=== PATIENT | male | born 1985 | race Caucasian/White ===

== ENCOUNTER 2023-10-07 21:26 | Emergency (ER) | payer MEDICARE, MEDICAID ==
[~2023-10-07] VITALS: Ht 188 cm; Wt 130.0 kg
[2023-10-07 22:00] VITALS: PULSE 82; RESP 16; O2SAT 97
[2023-10-07 22:11] LABS: Basophils # (auto) 0.1 10 ^3/uL (0-0.2); Basophils % (auto) 0.9 % (0.0-2.0); Eosinophils # (auto) 0.1 10 ^3/uL (0-0.8); Eosinophils % (auto) 1.7 % (0.0-7.0); Hematocrit 45.3 % (41.0-53.0); Hemoglobin 15.4 g/dL (13.5-17.5); Lymphocytes # (auto) 2.6 10 ^3/uL (0.4-5.4); Lymphocytes % (auto) 33.7 % (10.0-50.0); Mean Corpuscular Hgb Conc. 33.9 g/dL (32.0-36.0); Monocytes # (auto) 0.4 10 ^3/uL (0-1.3); Neutrophils # (auto) 4.6 10 ^3/uL (1.6-8.6); Neutrophils % (auto) 58.7 % (37.0-80.0); Nucleated Red Blood Cells % 0.1 %; Red Blood Cells 4.52 10^6/uL (4.5-5.90); Red Cell Distribution Width 13.8 % (11.8-14.3); White Blood Cell 7.8 10^3/uL (4.4-10.8)
[2023-10-07 22:17] LABS: Alanine Aminotransferase 27 U/L (7-40); Albumin 4.3 g/dL (3.2-4.8); Alkaline Phosphatase 40 U/L (46-116); Anion Gap 9 (5-15); Aspartate Aminotransferase 31 U/L (13-40); Bilirubin, Total 0.3 mg/dL (0.2-1.0); Calcium 8.7 mg/dL (8.7-10.4); Carbon Dioxide 24 mmol/L (20-30); Chloride 104 mmol/L (98-107); Glucose 129 mg/dL (74-106); Potassium 3.9 mmol/L (3.5-5.1); Sodium 137 mmol/L (136-145)
[2023-10-07 22:18] LABS: Total Protein 6.6 g/dL (5.7-8.2)
[2023-10-07 22:19] LABS: BUN/Creatinine Ratio 6.3 (10.0-20.0); Blood Urea Nitrogen < 5 mg/dL (9-23)
[2023-10-08 00:32] LABS: Urine Epithelial Cast None Seen /hpf (<5)
[2023-10-08 00:49] LABS: Urine Bacteria NONE SEEN /hpf (None Seen); Urine Blood Negative /uL (Negative); Urine Clarity Clear (Clear); Urine Color Straw (Yellow); Urine Protein, UAD Negative (Negative); Urine Specific Gravity 1.008 (1.001-1.035); Urine Urobilinogen Normal (Negative); Urine WBC <1 /hpf (0 - 3); Urine pH 6.5 (5.0-8.0)
[2023-10-08] MEDS: levETIRAcetam 500 MG TAB PO ONE (01:57)
[2023-10-08 04:00] VITALS: BP 125/71; PULSE 81; RESP 20; O2SAT 96
== END 2023-10-08 04:21 | disposition home or self-care (01) ==
LOC: EDBD 21:26 → ER 21:26
DX: R56.9 Unspecified convulsions (principal); F17.210 Nicotine dependence, cigarettes, uncomplicated; F12.10 Cannabis abuse, uncomplicated; Z59.00 Homelessness unspecified
CPT/HCPCS: 36415; 70450; 80053; 80164; 81001; 82542; 85025

== ENCOUNTER 2025-01-02 01:38 | Emergency (ER) | payer MEDICARE, MEDICAID ==
[~2025-01-02] VITALS: Ht 188 cm; Wt 128.5 kg
[2025-01-02 02:04] VITALS: BP 147/114; PULSE 71; RESP 16; TEMP 97.4; O2SAT 94
--- NOTE | 2025-01-02 02:45 | ED.PDOC ---
Musculoskeletal HPI Comments 39-YEAR-OLD MALE PRESENTS TO ER WITH COMPLAINTS OF RIGHT 5TH TOE PAIN X3 HOURS. PATIENT REPORTS THAT HE STARTED EXPERIENCING 5/10 PAIN WITH ASSOCIATED SWELLING/BRUISING TO RIGHT 5TH TOE 3 HOURS PRIOR TO ARRIVAL TO ER S/P ACCIDENTALLY HITTING A FOLDING TABLE WITH HIS RIGHT 5TH TOE WHILE WALKING BAREFOOT. DENIES USE OF MEDICATIONS FOR CURRENT SYMPTOMS. PATIENT PRESENTS TO ER AMBULATORY ON ARRIVAL, WITH STEADY GAIT, IN NO DISTRESS. DENIES NUMBNE SS/TINGLING, FURTHER SKIN CHANGES OR ANY FURTHER SYMPTOMS/COMPLAINTS Chief Complaint: Lower Extremity Time Seen by MD: 01:55 Primary Care Provider: DR VELAZQUEZ Reviewed Notes: Nurses Notes, Medications, Allergies Allergies: Coded Allergies: NO KNOWN ALLERGIES (Unverified , 04/06/15) Information Source: Patient Mode of Arrival: Ambulatory Past Medical History PAST MEDICAL HISTORY: Seizures Surgical History: Denies all surgeries Family History Family History: Unknown Social History Smoker: Cigarettes, Less Than 1 Pack/Day Alcohol: Occasionally Drugs: Marijuana Lives In: Homeless Constitutional: denies: chills, diaphoresis, fatigue, fever, malaise, sweats, weakness, others EENTM: denies: blurred vision, double vision, ear bleeding, ear discharge, ear drainage, ear pain, ear ringing, eye pain, eye redness, hearing loss, mouth pain, mouth swelling, nasal discharge, nose bleeding, nose congestion, nose pain, photophobia, tearing, throat pain, throat swelling, voice changes, others Respiratory: denies: cough, hemoptysis, orthopnea, SOB at rest, shortness of breath, SOB with excertion, stridor, wheezing, others Cardiovascular: denies: chest pain, dizzy spells, diaphoresis, Dyspnea on exertion, edema, irregular heart beat, left arm pain, lightheadedness, palpitations, PND, syncope, others Gastrointestinal: denies: abdomen distended, abdominal pain, blood streaked bowels, constipated, diarrhea, dysphagia, difficulty swallowing, hematemesis, melena, nausea, poor appetite, poor fluid intake, rectal bleeding, rectal pain, vomiting, others Genitourinary: denies: burning, dysuria, flank pain, frequency, hematuria, incontinence, penile discharge, penile sore, pain, testicle pain, testicle swelling, urgency, others Neurological: denies: dizziness, fainting, headache, left sided numbness, left sided weakness, numbness, paresthesia, pre-existing deficit, right sided numbness, right sided weakness, seizure, speech problems, tingling, tremors, weakness, others Musculoskeletal: reports: others ( STATED IN HPI) Integumetry: reports: others ( STATED IN HPI) Allergic/Immunocompromised: denies: Difficulty Healing, Frequent Infections, Hives, Itching, others Hematologic/Lymphatic: denies: anemia, blood clots, easy bleeding, easy bruising, swollen glands, others Endocrine: denies: excessive hunger, excessive sweating, excessive thirst, excessive urination, flushing, intolerance to cold, intolerance to heat, unexplained weight gain, unexplained weight loss, others Psychiatric: denies: anxiety, bipolar disorder, depression, hopeless, panic disorder, schizophrenia, sleepless, suicidal, others Physical Exam General Appearance: No Apparent Distress, Obese HEENT: PERRL/EOMI Neck: Full Range of Motion, Non-Tender, Normal Respiratory: Chest Non-Tender, Lungs Clear, No Accessory Muscle Use, No Respiratory Distress, Normal Breath Sounds Cardiovascular: No Murmur, No Gallop, Regular Rate/Rhythm Breast Exam: Deferred Gastrointestinal: NOT DONE Genitalia: Deferred Pelvic: Deferred Rectal: Deferred Extremities: Normal capillary refill, Normal range of motion Musculoskeletal : Extremity Location: Little Toe (TTP/MILD SWELLING/ECCHYMOSIS NOTED TO RIGHT 5TH TOE. NO NAILBED INJURY/DEFORMITY/FURTHER SKIN CHANGES NOTED. PULSES INTACT. STEADY GAIT APPRECIATED) Neurologic: Alert, No Motor Deficits, Normal Affect, Normal Mood, No Sensory Deficits Cerebellar Function: Normal Reflexes: Normal Skin: Dry, Warm Peripheral Pulses: 2+ dorsalis pedis (R), 2+ dorsalis pedis (L) Lymphatic: No Adenopathy Was a procedure done? Was a procedure done?: No Sedation Sedation?: No Differential Diagnosis EXT Differential Diagnosis: Fracture, Dislocation, Neurovascular injury X-Ray, Labs, Meds, VS Vital Signs Date Time Temp Pulse Resp B/P (MAP) Pulse Ox O2 Delivery O2 Flow Rate FiO2 01/02/25 02:04 97.4 71 16 147/114 (125) 94 97.4 01/02/25 02:04 71 16 94 Room Air 01/02/25 01:52 97.4 71 71 147/114 (125) 94 PATIENT: DIOGENES CABRALESCT: [id number]: [id number] : 1985 LOC: ER ROOM / BED: / AGE / SEX: 39 / M ADM STATUS: REG ER SERVICE 3 ORDERING PHYSICIAN: ALLAN EATON PROCEDURE(s): [id number] - R 5TH TOE XRAY REASON: right 5th toe pain ORDER NUMBER(s): [id number], ACCESSION NUMBER(s): [id number] XY R 5TH TOE XRAY, 01/02/2025. INDICATION: right 5th toe pain TECHNICAL DATA: Frontal view of the right foot and lateral and oblique views of the 5th toe were obtained. COMPARISON: None FINDINGS: No fracture is identified. Joint spaces are maintained. Alignment is anatomic. Soft tissues are within normal limits. IMPRESSION: 1. Unremarkable radiograph. No acute fracture or dislocation of the toe. ATED BY: CESAR ANG MD DICTATED DATE/TIME: 01/02/25312 SIGNED BY: CESAR ANG MD SIGNED DATE/TIME: 01/02/25312 CC: RIGHT 5TH TOE X-RAY REVIEWED PATIENT NEUROVASCULARLY INTACT AND IN NO DISTRESS PRIOR TO DISCHARGE ADVISED ON RESTLESS NO STRENUOUS ACTIVITY, ELEVATION AND ALTERNATE ICE ON/OFF NEEDED FOR PAIN/SWELLING ADVISED TO FOLLOW UP WITH PCP IN 1-2 DAYS PATIENT VERBALIZED UNDERSTANDING AND AGREEABLE WITH CURRENT PLAN OF CARE ADVISED TO RETURN TO ER IMMEDIATELY IF SYMPTOMS WORSEN Images Reviewed?: Images reviewed and evaluated by me Time of 1ST Reevaluation: 02:30 Reevaluation 1ST: N/A Patient Education/Counseling: Diagnosis, Treatment, Prognosis, Need For Follow Up Family Education/Counseling: No Family Present Departure 1 Departure Time of Disposition: 03:12 Impression: Primary Impression: Contusion of toe of right foot Qualified Codes: S90.121A - Contusion of right lesser toe(s) without damage to nail, initial encounter Disposition: 01 HOME / SELF CARE / HOMELESS Condition: Stable e-Prescriptions Acetaminophen (Acetaminophen) 500 Mg Tab 500 MG PO Q4HPRN, #30 TAB 0 Refills Prov: ALLAN EATON 01/02/25 Discharged With: Self Critical Care Note Critical Care Time?: No Stability Stability form required: No Heart Score Heart Score: Heart Score Response (Comments) Value History N/A 0 EKG N/A 0 Age N/A 0 Risk Factors N/A 0 Troponin N/A 0 Total 0 ALLAN EATON Jan 02, 2025 02:45
--- NOTE | 2025-01-02 03:16 | DVH ---
XY R 5TH TOE XRAY, 01/02/2025. INDICATION: right 5th toe pain TECHNICAL DATA: Frontal view of the right foot and lateral and oblique views of the 5th toe were obta ined. COMPARISON: None FINDINGS: No fracture is identified. Joint spaces are maintained. Alignment is anatomic. Soft tissues are withi n normal limits. IMPRESSION: 1. Unremarkable radiograph. No acute fracture or dislocation of the toe.
[2025-01-02] MEDS ORDERED: ACET500T58 PO (03:19)
== END 2025-01-02 03:28 | disposition home or self-care (01) ==
LOC: ER 01:38
DX: S90.121A Contusion of right lesser toe(s) without damage to nail, initial encounter (principal); S90.31XA Contusion of right foot, initial encounter; F17.210 Nicotine dependence, cigarettes, uncomplicated; Z59.00 Homelessness unspecified; W22.8XXA Striking against or struck by other objects, initial encounter; Y93.01 Activity, walking, marching and hiking; Y92.89 Other specified places as the place of occurrence of the external cause; Y99.8 Other external cause status
CPT/HCPCS: 73660

== ENCOUNTER 2025-02-20 17:01 | Emergency (ER) | payer MEDICARE, MEDICAID ==
[~2025-02-20] VITALS: Ht 188 cm; Wt 129.1 kg
[~2025-02-20 17:01] MED LIST: ACET500T58 PO
[2025-02-20 17:27] VITALS: BP 110/82; PULSE 93; RESP 16; TEMP 99.7; O2SAT 95
[2025-02-20 17:49] LABS: Eosinophils # (auto) 0.1 10 ^3/uL (0-0.8); Lymphocytes # (auto) 1.4 10 ^3/uL (0.4-5.4); Lymphocytes % (auto) 20.9 % (10.0-50.0); Monocytes # (auto) 0.7 10 ^3/uL (0-1.3); Red Cell Distribution Width 13.4 % (11.8-14.3)
[2025-02-20 17:51] LABS: Basophils # (auto) 0 10 ^3/uL (0-0.2); Basophils % (auto) 0.5 % (0.0-2.0); Eosinophils % (auto) 1.1 % (0.0-7.0); Hematocrit 47.7 % (41.0-53.0); Hemoglobin 16.7 g/dL (13.5-17.5); Mean Corpuscular Hemoglobin 34.5 pg (28.0-32.0); Mean Corpuscular Volume 98.7 fL (80.0-100.0); Monocytes % (auto) 10.5 % (0.0-12.0); Neutrophils # (auto) 4.4 10 ^3/uL (1.6-8.6); Nucleated Red Blood Cells % 0.2 %; Platelet Count (auto) 192 10^3/uL (140-450); Red Blood Cells 4.83 10^6/uL (4.5-5.90); White Blood Cell 6.5 10^3/uL (4.4-10.8)
--- NOTE | 2025-02-20 17:54 | ED.PDOC ---
History of Present Illness HPI Comments Mr. Kelly,a 40-year-old gentleman with past medical history significant for epilepsy, previous toe surgery, baseline imbalanced gait needing right-sided walking silverio came with recent onset of flu-like symptoms with worsening cough, malaise, chills, overall weakness, and finally developing sore throat for r oughly past 3 days. Patient had recent visit to [facility], [place] to visit 1 of the family members since when patient is having the onset of the symptoms. Denies any other sick contact, nausea, vomiting, constipation, diarrhea, urinary symptoms or any other physical discomfort. He follows with [facility] appointed primary care physician but not specify whether he had COVID or influenza immunization. Past medical history: As above Past surgical history: As above Social history: Lives at home with girlfriend. Denies recreational drugs, alcohol, current smoking. All the previous chart review reveals history of cigarette smoking. Meds: On Keppra, Dilantin, reported taking it regularly. Family history: Noncontributory. Allergies: Denies any known history to medications or dietary substance. 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, Medications, Allergies Allergies: Coded Allergies: NO KNOWN ALLERGIES (Unverified , 04/06/15) Home Meds Active Scripts Doxycycline Monohydrate (Doxycycline Monohydrate) 100 Mg Tab, 100 MG GT BID for 5 Days, #10 TAB Prov:MICAH SERNA 02/20/25 Acetaminophen (Acetaminophen) 500 Mg Tab, 500 MG PO Q4HPRN, #30 TAB 0 Refills Prov:ALLAN EATON 01/02/25 Information Source: Patient, Past Medical Record Mode of Arrival: Ambulatory Severity: Mild Timing: Days Duration: Since onset Prehospital treatment: None Past Medical History PAST MEDICAL HISTORY: Seizures Past Medical History (Other): As per HPI Surgical History: Denies all surgeries Surgical History (Other): As per HPI Family History Family History: Unknown Family History (Other): As per HPI Social History Smoker: Cigarettes, Less Than 1 Pack/Day Alcohol: Occasionally Drugs: Marijuana Lives In: Homeless Constitutional: reports: chills, fatigue, malaise, weakness; denies: diaphoresis, fever, sweats, others EENTM: denies: blurred vision, double vision, ear bleeding, ear discharge, ear drainage, ear pain, ear ringing, eye pain, eye redness, hearing loss, mouth pain, mouth swelling, nasal discharge, nose bleeding, nose congestion, nose pain, photophobia, tearing, throat pain, throat swelling, voice changes, others Respiratory: reports: cough; denies: hemoptysis, orthopnea, SOB at rest, shortness of breath, SOB with excertion, stridor, wheezing, others Cardiovascular: denies: chest pain, dizzy spells, diaphoresis, Dyspnea on exertion, edema, irregular heart beat, left arm pain, lightheadedness, palpitations, PND, syncope, others Gastrointestinal: denies: abdomen distended, abdominal pain, blood streaked bowels, constipated, diarrhea, dysphagia, difficulty swallowing, hematemesis, melena, nausea, poor appetite, poor fluid intake, rectal bleeding, rectal pain, vomiting, others Genitourinary: denies: burning, dysuria, flank pain, frequency, hematuria, incontinence, penile discharge, penile sore, pain, testicle pain, testicle swelling, urgency, others Neurological: denies: dizziness, fainting, headache, left sided numbness, left sided weakness, numbness, paresthesia, pre-existing deficit, right sided numbness, right sided weakness, seizure, speech problems, tingling, tremors, weakness, others Musculoskeletal: denies: back pain, gout, joint pain, joint swelling, muscle pain, muscle stiffness, neck pain, others Integumetry: denies: bruises, change in color, change in hair/nails, dryness, laceration, lesions, lumps, rash, wounds, others Allergic/Immunocompromised: denies: Difficulty Healing, Frequent Infections, Hives, Itching, others Hematologic/Lymphatic: denies: anemia, blood clots, easy bleeding, easy bruising, swollen glands, others Endocrine: denies: excessive hunger, excessive sweating, excessive thirst, excessive urination, flushing, intolerance to cold, intolerance to heat, unexplained weight gain, unexplained weight loss, others Psychiatric: denies: anxiety, bipolar disorder, depression, hopeless, panic disorder, schizophrenia, sleepless, suicidal, others Physical Exam General Appearance: No Apparent Distress HEENT: Normal ENT Inspection Neck: Full Range of Motion, Non-Tender, Normal Inspection Respiratory: Lungs Clear, No Accessory Muscle Use, No Respiratory Distress, Normal Breath Sounds Cardiovascular: No Edema, No Murmur, No Gallop, Normal Peripheral Pulses, Regular Rate/Rhythm Breast Exam: Deferred Gastrointestinal: No Organomegaly, Non Tender, Normal Bowel Sounds, Soft Genitalia: Deferred Pelvic: Deferred Rectal: Deferred Extremities: Normal inspection, No pedal edema Neurologic: Abnormal Gait (At baseline unchanged), Normal Affect, Normal Mood, No Sensory Deficits Cerebellar Function: NOT DONE Reflexes: NOT DONE Skin: NOT DONE Lymphatic: NOT DONE Was a procedure done? Was a procedure done?: No Differential Dx Considerations may include: Viral URI, community-acquired pneumonia, COVID pneumonia, influenza, strep throat X-Ray, Labs, Meds, VS Vital Signs Date Time Temp Pulse Resp B/P (MAP) Pulse Ox O2 Delivery O2 Flow Rate FiO2 02/20/25 17:27 99.7 93 16 110/82 (91) 95 99.7 Lab Test 02/20/25 17:35 Range/Units White Blood Count 6.5 4.4-10.8 10^3/uL Red Blood Count 4.83 4.5-5.90 10^6/uL Hemoglobin 16.7 13.5-17.5 g/dL Hematocrit 47.7 41.0-53.0 % Mean Corpuscular Volume 98.7 80.0-100.0 fL Mean Corpuscular Hemoglobin 34.5 H 28.0-32.0 pg Mean Corpuscular Hemoglobin Concent 35.0 32.0-36.0 g/dL Red Cell Distribution Width 13.4 11.8-14.3 % Platelet Count 192 140-450 10^3/uL Mean Platelet Volume 8.2 6.9-10.8 fL Neutrophils (%) (Auto) 67.0 37.0-80.0 % Lymphocytes (%) (Auto) 20.9 10.0-50.0 % Monocytes (%) (Auto) 10.5 0.0-12.0 % Eosinophils (%) (Auto) 1.1 0.0-7.0 % Basophils (%) (Auto) 0.5 0.0-2.0 % Neutrophils # (Auto) 4.4 1.6-8.6 10 ^3/uL Lymphocytes # (Auto) 1.4 0.4-5.4 10 ^3/uL Monocytes # (Auto) 0.7 0-1.3 10 ^3/uL Eosinophils # (Auto) 0.1 0-0.8 10 ^3/uL Basophils # (Auto) 0 0-0.2 10 ^3/uL Nucleated Red Blood Cells 0.2 % Images Reviewed?: Images reviewed and evaluated by me Time of 1ST Reevaluation: 18:37 Reevaluation 1ST: Unchanged (CXR unremarkable, vitals stable, afebrile, no leukocytosis noted in CBC. Pending rapid strep throat, COVID and flu workup.) Time of 2ND Reevaluation: 22:37 Reevaluation 2ND: Improved (MEDICATIONS PRESCRIBED WITH 5 DAYS OF ORAL DOXYCYCLINE 100 MG B.I.D., PLENTY OF FLUID, STILL VIRAL PANEL PENDING, UNLIKELY HE WILL NEED ANTITUSSIVES. Discussed with Dr. Hall) Consultation: PCP (At discharge follow up with PCP within 1 week of discharge.) Patient Education/Counseling: Diagnosis, Treatment, Prognosis Family Education/Counseling: No Family Present Sepsis Sepsis Reasesment Focused Exam Sepsis focused exam: focus exam completed (Unremarkable for SIRS.), time: Departure 1 Departure Time of Disposition: 22:36 Impression: Primary Impression: Atypical pneumonia Additional Impression: Viral URI with cough Disposition: HOME / SELF CARE / HOMELESS Condition: Fair Referrals pcp e-Prescriptions Doxycycline Monohydrate (Doxycycline Monohydrate) 100 Mg Tab 100 MG GT BID for 5 Days, #10 TAB Prov: MICAH SERNA RESIDENT 02/20/25 Discharged With: Self Critical Care Note Critical Care Time?: No Stability Stability form required: No Heart Score Heart Score: Heart Score Response (Comments) Value History N/A 0 EKG N/A 0 Age N/A 0 Risk Factors N/A 0 Troponin N/A 0 Total 0 MICAH SERNA RESIDENT Feb 20, 2025 17:54
--- NOTE | 2025-02-20 18:26 | DVH ---
XY CHEST XRAY 1 VIEW, HISTORY: respiratory symptoms COMPARISON: None None TECHNICAL DATA: 1 view of the chest was obtained. FINDINGS: Lines and tubes: None Cardiomediastinal silhouette: normal Pulmonary vasculature: normal Lung expansion: normal Lung airspace: normal Lung interstitium: normal Pleura: normal Pneumothorax: no Bones: Unremarkable Other: IMPRESSION: No acute intrathoracic abnormality.
[2025-02-20] MEDS ORDERED: DOX100T GT (22:35)
== END 2025-02-21 00:26 | disposition home or self-care (01) ==
LOC: ER 17:01
DX: J18.9 Pneumonia, unspecified organism (principal); J06.9 Acute upper respiratory infection, unspecified; R05.9 Cough, unspecified; B97.89 Other viral agents as the cause of diseases classified elsewhere; F17.210 Nicotine dependence, cigarettes, uncomplicated; F12.90 Cannabis use, unspecified, uncomplicated; Z59.00 Homelessness unspecified
CPT/HCPCS: 36415; 71045; 85025